=== PATIENT | male | born 1945 | race Caucasian/White ===

== ENCOUNTER → 2020-01-25 | Outpatient (CLI) | payer OTHER ==
[~2020-01-25] MED LIST: EYE MED; HYDACE5 PO; LATA.005SO BOTHEYES; PARO20 PO; TIMO.25OPS OD; TIMO.5OPSO BOTHEYES; TRAV.004OP OD; WARF3; [UNRECOGNIZED DRUG - CODE] PO
[2020-01-27 16:11] LABS: CORONAVIRUS (COVID19) CSH-NRL Positive (Negative)
== END | disposition home or self-care (01) ==
LOC: PLD 15:03
PROVIDERS: Physician Assistant
DX: U07.1 COVID-19 (principal)
CPT/HCPCS: U0003

== ENCOUNTER 2020-01-31 15:45 | Emergency (ER) | payer OTHER ==
[~2020-01-31] VITALS: Ht 177.8 cm; Wt 83.9 kg
[2020-01-31 16:28] LABS: BASOPHILS ABSOLUTE AUTO 0.01 K/mm3 (0.00-0.23); BASOPHILS PERCENT AUTO 0 % (0-2); EOSINOPHILS ABSOLUTE AUTO 0.01 K/mm3 (0.00-0.68); EOSINOPHILS PERCENT AUTO 0 % (0-6); Hemoglobin 13.9 g/dL (13.5-17.5); IMMATURE GRAN ABSOLUTE AUTO 0.01 K/mm3 (0.00-0.10); IMMATURE GRAN PERCENT AUTO 0 % (0-1); LYMPHOCYTES ABSOLUTE AUTO 0.98 K/mm3 (0.84-5.20); LYMPHOCYTES PERCENT AUTO 25 % (21-46); MONOCYTES ABSOLUTE AUTO 0.59 K/mm3 (0.16-1.47); MONOCYTES PERCENT AUTO 15 % (4-13); Mean Corpuscular HGB 30.2 pg (26.0-34.0); Mean Corpuscular HGB Conc 33.9 g/dL (31.5-36.5); Mean Corpuscular Volume 89 fL (80-100); Mean Platelet Volume 10.9 fL (9.1-12.4); NEUTROPHILS PERCENT AUTO 60 % (41-73); Platelet Count 110 K/mm3 (150-400); RDW Coefficient Variation 12.3 % (11.7-14.2); RDW Standard Deviation 40.2 fL (35.1-46.3)
[2020-01-31 16:37] LABS: Alanine Aminotransfer (ALT/SGP 20 U/L (12-78); Albumin, Blood 2.8 g/dL (3.4-5.0); Albumin/Globulin Ratio 0.8 (0.8-1.8); Alk Phos 60 U/L (50-136); Anion Gap 9 mmol/L (6-16); Aspartate Aminotrans (AST/SGOT 36 U/L (12-37); Bilirubin, Total 0.6 mg/dL (0.1-1.0); Blood Urea Nitrogen 16 mg/dL (8-24); Bun/Creatinine Ratio 20.2 (12.0-20.0); CO2, Blood 24 mmol/L (21-32); Calcium, Blood 8.4 mg/dL (8.5-10.1); Chloride, Blood 104 mmol/L (98-108); Creatinine, Blood 0.79 mg/dL (0.60-1.20); Globulin, Blood 3.5 g/dL (2.2-4.0); Glomerular Filtration Rate >60 (60-); Glucose, Blood 123 mg/dL (70-99); Potassium, Blood 4.2 mmol/L (3.5-5.5); Sodium, Blood 137 mmol/L (136-145); Total Protein, Blood 6.3 g/dL (6.4-8.2)
== END 2020-01-31 19:40 | disposition home or self-care (01) ==
LOC: ER 15:45
PROVIDERS: Emergency Medicine
DX: R55 Syncope and collapse (principal); S09.90XA Unspecified injury of head, initial encounter; Z86.19 Personal history of other infectious and parasitic diseases; W18.30XA Fall on same level, unspecified, initial encounter; Y92.002 Bathroom of unspecified non-institutional (private) residence as the place of occurrence of the external cause
CPT/HCPCS: 70450; 80053; 85025; 93005; 93010; 99285-25; J7030

== ENCOUNTER → 2020-02-04 | Outpatient (CLI) | payer OTHER ==
[2020-02-04 13:04] LABS: BASOPHILS ABSOLUTE AUTO 0.01 K/mm3 (0.00-0.23); BASOPHILS PERCENT AUTO 0 % (0-2); EOSINOPHILS ABSOLUTE AUTO 0.04 K/mm3 (0.00-0.68); EOSINOPHILS PERCENT AUTO 1 % (0-6); Hematocrit 36.9 % (37.0-53.0); Hemoglobin 13.1 g/dL (13.5-17.5); IMMATURE GRAN ABSOLUTE AUTO 0.02 K/mm3 (0.00-0.10); IMMATURE GRAN PERCENT AUTO 0 % (0-1); LYMPHOCYTES ABSOLUTE AUTO 1.36 K/mm3 (0.84-5.20); LYMPHOCYTES PERCENT AUTO 25 % (21-46); MONOCYTES ABSOLUTE AUTO 0.61 K/mm3 (0.16-1.47); MONOCYTES PERCENT AUTO 11 % (4-13); Mean Corpuscular HGB 30.5 pg (26.0-34.0); Mean Corpuscular HGB Conc 35.5 g/dL (31.5-36.5); Mean Corpuscular Volume 86 fL (80-100); Mean Platelet Volume 10.6 fL (9.1-12.4); NEUTROPHILS ABSOLUTE AUTO 3.43 K/mm3 (1.96-9.15); NEUTROPHILS PERCENT AUTO 63 % (41-73); Platelet Count 163 K/mm3 (150-400); RDW Coefficient Variation 12.6 % (11.7-14.2); RDW Standard Deviation 39.1 fL (35.1-46.3); White Blood Cell Count 5.47 K/mm3 (4.00-11.30)
[2020-02-04 13:09] LABS: Anion Gap 9 mmol/L (6-16); Blood Urea Nitrogen 13 mg/dL (8-24); Bun/Creatinine Ratio 20.3 (12.0-20.0); CO2, Blood 24 mmol/L (21-32); Calcium, Blood 8.7 mg/dL (8.5-10.1); Chloride, Blood 100 mmol/L (98-108); Creatinine, Blood 0.64 mg/dL (0.60-1.20); Glomerular Filtration Rate >60 (60-); Glucose, Blood 105 mg/dL (70-99); Potassium, Blood 3.8 mmol/L (3.5-5.5); Sodium, Blood 133 mmol/L (136-145)
== END | disposition home or self-care (01) ==
LOC: LAB EV 12:54
PROVIDERS: Physician Assistant Surgical
DX: J18.9 Pneumonia, unspecified organism (principal)
CPT/HCPCS: 80048; 85025

== ENCOUNTER → 2024-11-15 | Outpatient (CLI) | payer OTHER | LOC: LAB SHORT 13:13 → LAB 13:13 | DX: M79.671 Pain in right foot (principal) | CPT/HCPCS: 84550 ==

== ENCOUNTER 2024-11-22 16:05 | Emergency (ER) | payer OTHER ==
[~2024-11-22] VITALS: Ht 182.9 cm; Wt 72.6 kg
[2024-11-22 16:48] LABS: BASOPHILS ABSOLUTE AUTO 0.06 K/mm3 (0.00-0.23); BASOPHILS PERCENT AUTO 1 % (0-2); EOSINOPHILS ABSOLUTE AUTO 0.14 K/mm3 (0.00-0.68); EOSINOPHILS PERCENT AUTO 2 % (0-6); Hematocrit 43.3 % (37.0-53.0); Hemoglobin 15.1 g/dL (13.5-17.5); IMMATURE GRAN ABSOLUTE AUTO 0.03 K/mm3 (0.00-0.10); IMMATURE GRAN PERCENT AUTO 0 % (0-1); LYMPHOCYTES ABSOLUTE AUTO 2.01 K/mm3 (0.84-5.20); LYMPHOCYTES PERCENT AUTO 23 % (21-46); MONOCYTES ABSOLUTE AUTO 0.81 K/mm3 (0.16-1.47); MONOCYTES PERCENT AUTO 9 % (4-13); Mean Corpuscular HGB Conc 34.9 g/dL (31.5-36.5); Mean Corpuscular Volume 88 fL (80-100); NEUTROPHILS ABSOLUTE AUTO 5.61 K/mm3 (1.96-9.15); NEUTROPHILS PERCENT AUTO 65 % (41-73); NRBC ABSOLUTE 0.00 K/mm3 (0.00-0.02); NRBC Auto 0.0 /100 WBC (0.0-0.2); Platelet Count 208 K/mm3 (150-400); RDW Coefficient Variation 12.8 % (11.7-14.2); RDW Standard Deviation 41.8 fL (35.1-46.3)
[2024-11-22 17:03] LABS: Alanine Aminotransfer (ALT/SGP 33 U/L (12-78); Albumin, Blood 3.6 g/dL (3.4-5.0); Albumin/Globulin Ratio 0.9 (0.8-1.8); Anion Gap 10 mmol/L (3-11); Aspartate Aminotrans (AST/SGOT 23 U/L (12-37); Bilirubin, Total 0.4 mg/dL (0.1-1.0); Blood Urea Nitrogen 25 mg/dL (8-24); C-REACTIVE PROTEIN, EXT RANGE <0.290 mg/dL (0.000-0.300); CO2, Blood 22 mmol/L (21-32); Calcium, Blood 9.3 mg/dL (8.5-10.1); Chloride, Blood 105 mmol/L (98-108); Creatinine, Blood 0.97 mg/dL (0.60-1.20); Globulin, Blood 3.9 g/dL (2.2-4.0); Glucose, Blood 154 mg/dL (70-99); Potassium, Blood 4.0 mmol/L (3.5-5.5); Sodium, Blood 133 mmol/L (136-145); Total Protein, Blood 7.5 g/dL (6.4-8.2)
[2024-11-22 18:30] VITALS: BP 125/79
== END 2024-11-22 18:54 | disposition home or self-care (01) ==
LOC: ER 16:05
PROVIDERS: Physician Assistant
DX: L97.519 Non-pressure chronic ulcer of other part of right foot with unspecified severity (principal); Z79.899 Other long term (current) drug therapy
CPT/HCPCS: 73630; 80053; 85025; 85651; 86140; 99283-25

== ENCOUNTER 2024-12-11 07:30 | Day surgery (SDC) | payer OTHER ==
[2024-12-11] MEDS ORDERED: DAPTOmycin 700 MG in NS 50 ML IV SCH (12:20)
[2024-12-11 17:19] VITALS: BP 143/77
--- NOTE | 2024-12-11 18:36 | NUR ---
LIVES ALONE, DTR BRIONNA AND FRIEND SOFI CHECK ON HIM DAILY
[2024-12-11] MEDS ORDERED: SIMBRINZA 1%-0.28 M1 LEFTEYE (18:40)
[2024-12-11] MEDS ORDERED: Lutein6 MG PO (18:41)
[2024-12-11] MEDS ORDERED: Cymbalta20 MG PO (18:41)
[2024-12-11] MEDS ORDERED: Acerola C500 MG PO (18:41)
[2024-12-11] MEDS ORDERED: PARO20 PO (18:41)
[2024-12-11] MEDS ORDERED: TUMERIC (18:42)
[2024-12-11] MEDS ORDERED: VITAMIN B12500 MCG PO (18:42)
[2024-12-11] MEDS ORDERED: VITAMIN D310 MC4 (18:42)
[2024-12-11] MEDS ORDERED: MAGNESIUM OXID500 MG PO (18:43)
[2024-12-11] MEDS ORDERED: [UNRECOGNIZED DRUG - OTHER] PO (18:44)
[2024-12-11] MEDS ORDERED: Alphagan P5 ML LEFTEYE (18:44)
[2024-12-11] MEDS ORDERED: ASHWAGANDHA300 MG PO (18:44)
[2024-12-11] MEDS ORDERED: SELENIUM200 MC3 PO (18:45)
[2024-12-11] MEDS ORDERED: CENTRUM SILVER1 EAC2 PO (18:45)
== END 2024-12-11 23:00 | disposition home or self-care (01) ==
LOC: ATC 07:30
DX: L03.115 Cellulitis of right lower limb (principal); L97.511 Non-pressure chronic ulcer of other part of right foot limited to breakdown of skin; G62.9 Polyneuropathy, unspecified
CPT/HCPCS: 96365; J0878

== ENCOUNTER 2024-12-12 14:37 | Day surgery (SDC) | payer OTHER ==
[~2024-12-12 14:37] MED LIST changes: +ASHWAGANDHA300 MG PO; +Acerola C500 MG PO; +Alphagan P5 ML LEFTEYE; +CENTRUM SILVER1 EAC2 PO; +Cymbalta20 MG PO; +Lutein6 MG PO; +MAGNESIUM OXID500 MG PO; +SELENIUM200 MC3 PO; +SIMBRINZA 1%-0.28 M1 LEFTEYE; +TUMERIC; +VITAMIN B12500 MCG PO; +VITAMIN D310 MC4; +[UNRECOGNIZED DRUG - OTHER] PO
[2024-12-12] MEDS ORDERED: DAPTOmycin 700 MG in NS 50 ML IV SCH (15:15)
[2024-12-12 17:07] VITALS: BP 121/73
== END 2024-12-12 17:22 | disposition home or self-care (01) ==
LOC: ATC 14:37
DX: L03.115 Cellulitis of right lower limb (principal); L97.511 Non-pressure chronic ulcer of other part of right foot limited to breakdown of skin; G60.3 Idiopathic progressive neuropathy; M14.671 Charcot's joint, right ankle and foot; Z79.899 Other long term (current) drug therapy
CPT/HCPCS: 96365; J0878

== ENCOUNTER 2024-12-13 11:13 | Day surgery (SDC) | payer OTHER ==
[2024-12-13] MEDS ORDERED: DAPTOmycin 700 MG in NS 50 ML IV SCH (11:25)
[2024-12-13 16:58] VITALS: BP 146/77
== END 2024-12-13 17:31 | disposition home or self-care (01) ==
LOC: ATC 11:13
DX: L03.115 Cellulitis of right lower limb (principal); E11.621 Type 2 diabetes mellitus with foot ulcer; L97.511 Non-pressure chronic ulcer of other part of right foot limited to breakdown of skin; E11.42 Type 2 diabetes mellitus with diabetic polyneuropathy; M14.671 Charcot's joint, right ankle and foot; M19.071 Primary osteoarthritis, right ankle and foot; Z86.73 Personal history of transient ischemic attack (TIA), and cerebral infarction without residual deficits
CPT/HCPCS: 96365; J0878

== ENCOUNTER 2024-12-15 01:39 | Day surgery (SDC) | payer OTHER ==
[2024-12-15] MEDS ORDERED: DAPTOmycin 700 MG in NS 50 ML IV SCH (06:00)
[2024-12-15 16:45] VITALS: BP 135/70
== END 2024-12-15 17:15 | disposition home or self-care (01) ==
LOC: ATC 01:39
DX: L03.115 Cellulitis of right lower limb (principal); E11.621 Type 2 diabetes mellitus with foot ulcer; L97.511 Non-pressure chronic ulcer of other part of right foot limited to breakdown of skin; G60.3 Idiopathic progressive neuropathy; M14.671 Charcot's joint, right ankle and foot; Z79.899 Other long term (current) drug therapy; Z86.73 Personal history of transient ischemic attack (TIA), and cerebral infarction without residual deficits
CPT/HCPCS: 96365; J0878

== ENCOUNTER 2025-01-27 01:16 | Day surgery (SDC) | payer OTHER ==
[2025-01-27] MEDS ORDERED: Lidocaine HCl 4% Cream 5 GM ONE (14:15)
== END 2025-01-27 23:00 | disposition home or self-care (01) ==
LOC: WOUND 01:16
DX: L89.893 Pressure ulcer of other site, stage 3 (principal); L97.812 Non-pressure chronic ulcer of other part of right lower leg with fat layer exposed; I73.9 Peripheral vascular disease, unspecified; I87.2 Venous insufficiency (chronic) (peripheral)
CPT/HCPCS: A6213; A9270; G0463

== ENCOUNTER 2025-02-03 00:29 | Day surgery (SDC) | payer OTHER ==
[2025-02-03] MEDS ORDERED: Lidocaine HCl 4% Cream 5 GM ONE (14:49)
== END 2025-02-03 23:37 | disposition home or self-care (01) ==
LOC: WOUND 00:29
DX: L89.893 Pressure ulcer of other site, stage 3 (principal); L97.812 Non-pressure chronic ulcer of other part of right lower leg with fat layer exposed; I73.9 Peripheral vascular disease, unspecified; I87.2 Venous insufficiency (chronic) (peripheral)
CPT/HCPCS: A6213; A9270

== ENCOUNTER 2025-02-10 00:26 | Day surgery (SDC) | payer OTHER ==
[2025-02-10] MEDS ORDERED: Lidocaine HCl 4% Cream 5 GM ONE (14:18)
== END 2025-02-10 23:00 | disposition home or self-care (01) ==
LOC: WOUND 00:26
DX: L89.893 Pressure ulcer of other site, stage 3 (principal); L97.812 Non-pressure chronic ulcer of other part of right lower leg with fat layer exposed; I87.2 Venous insufficiency (chronic) (peripheral); I73.9 Peripheral vascular disease, unspecified
CPT/HCPCS: A9270; G0463

== ENCOUNTER 2025-03-03 08:22 | Day surgery (SDC) | payer OTHER ==
[2025-03-03] MEDS ORDERED: Lidocaine HCl 4% Cream 5 GM ONE (14:21)
== END 2025-03-03 23:00 | disposition home or self-care (01) ==
LOC: WOUND 08:22
DX: L89.893 Pressure ulcer of other site, stage 3 (principal); L97.812 Non-pressure chronic ulcer of other part of right lower leg with fat layer exposed; I73.9 Peripheral vascular disease, unspecified; I87.2 Venous insufficiency (chronic) (peripheral); M19.90 Unspecified osteoarthritis, unspecified site; Z79.899 Other long term (current) drug therapy
CPT/HCPCS: A9270; G0463